=== PATIENT | male | born 2000 | race Caucasian/White ===

== ENCOUNTER 2025-01-08 13:25 | Emergency (ER) | payer OTHER, SELFPAY ==
[2025-01-08 13:42] VITALS: BP 180/92
[2025-01-08 14:08] LABS: % Basophils 0.5 % (0-2); % Immature Granulocytes 0.4 % (0-0.5); % Lymphocytes 18.4 % (20.5-51.1); % Monocytes 4.7 % (1.7-9.3); Absolute Lymphocytes 1.5 10^3/uL (1.2-3.4); Absolute Monocytes 0.4 10^3/uL (0.1-0.6); Absolute Neutrophils 6.3 10^3/uL (1.4-6.5); Hemoglobin 15.6 g/dL (13.0-18.0); Mean Corp Hgb Conc. 37.1 g/dL (33.0-37.0); Mean Corpuscular Hgb 31.9 pg (27.0-31.0); Mean Corpuscular Volume 85.9 fL (80.0-94.0); Mean Platelet Volume 10.6 fL (7.4-10.4); Nucleated Red Blood Cells % 0 % (-); Platelet Count 148 10^3/uL (130-400); Red Blood Cell Count 4.89 10^6/uL (4.70-6.10); Red Cell Dist. Width 11.9 % (11.5-14.5); White Blood Cell Count 8.3 10^3/uL (4.8-10.8)
[2025-01-08 14:31] LABS: Amphetamines Negative (Negative); Barbiturates Negative (Negative); Benzodiazepines Negative (Negative); Buprenorphine Negative (Negative); Cocaine Negative (Negative); Marijuana Positive (Negative); Methadone Negative (Negative); Methamphetamines Negative (Negative); Opiates Negative (Negative); Phencyclidine Negative (Negative); Tricyclic Antidepressants Negative (Negative)
[2025-01-08 14:32] LABS: ALT (SGPT) 512 U/L (0-50); Acetaminophen < 10 ug/ml (10-30); Albumin 5.1 g/dl (3.5-5.0); Alkaline Phosphatase 100 U/L (38-126); Blood Urea Nitrogen 9 mg/dl (9-20); Calcium 8.9 mg/dl (8.4-10.2); Carbon Dioxide 30 mmol/L (22-30); Chloride 82 mmol/L (98-107); Glucose 149 mg/dl (70-99); Potassium 3.5 mmol/L (3.5-5.1); Salicylate < 1.0 mg/dl (2.0-20.0); Sodium 132 mmol/L (135-145); Total Bilirubin 1.1 mg/dl (0.2-1.3); Total Protein 8.3 g/dl (6.3-8.2); eGFR > 60.00
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
--- NOTE | 2025-01-08 14:43 | CM ---
Addendum entered by Keyanna Tillman RN 01/08/25 15:06:
CM met with patient in room. Patient was visible intoxicated, but was agreeable to [facility] referral. CM spoke with Tj regarding new referral.
Original Note:
CM reviewed medical records. Plan for crisis to evaluate. CM will continue to follow as needed.
[2025-01-08 14:44] LABS: AST (SGOT) 770 U/L (17-59); Alcohol 476 mg/dl
[2025-01-08 15:16] VITALS: BP 147/103
--- NOTE | 2025-01-08 15:16 | EDRN ---
er dR Nichols CANCELLED THIS PTS ONE TO ONE OBSERVATION ORDER AND STATED TO THIS ORE FEEDER THAT THIS PT DOES NOT NEED FREQUENT OBSERVATION. ER DR NICHOLS WAS NOTIFIED THAT THE PT IS CURRENTLY DRY HEAVING
[2025-01-08 15:30] VITALS: BMI 20.9
[2025-01-08] MEDS: ZOFRAN 4 MG IV (15:33)
[2025-01-08] MEDS: MULTIVITAMIN 1011 ML IV (15:52)
[2025-01-08] MEDS: MULTIVITAMIN 1011 MG IV (15:52)
--- NOTE | 2025-01-08 15:57 | EDRN ---
the pt is observed getting up out of bed, walking to the sink in the hallway, filling up the urinal with water, and drinking the water out of the urinal. the pt was repeatedly told he should not be drinking any water due to current nausea and
vomiting. the pt stated 'i need to drink the water so i can vomit and get it all out.' the pt is repeatedly asking for water. ER Dr Mahan was notified of above and stated the pt is allowed to drink water.
--- NOTE | 2025-01-08 16:45 | EDRN ---
this HOUSING PROJECT MANAGER observed this pt out of bed walking to the hallway sink, filling the urinal up with water, and drinking out of it. the pt is bleeding from his IV site due to the pt removing his IV so he could get out of bed to get water. this HOUSING PROJECT MANAGER
bandaged the pts left forearm IV site and cleaned up the blood that dripped on the floor and in the hallway and on the hallway sink. ER Dr Mahan was notified of above and came to the pts bedside to speak with this pt. ER Dr Mahan told this pt he
can not have any more water to drink for now. Per ER Dr Mahan verbal order at bedside, if the pt is able to not vomit for one hour then he can be given a few ice chips for PO challenge and advance diet as tolerated. the pt is continually stating 'i
need water. I need to drink water.'
the ER two way radio technician Keisha Washington was called notified of above. the pt was placed on 1:1 observation for patient safety due to the pt continually getting out of bed and removing his IV access.
Per ER Dr Mahan verbal order to this HOUSING PROJECT MANAGER, the pt does NOT need to be continuous cardiac monitoring.
[2025-01-08 17:00] VITALS: BP 150/94
[2025-01-08 18:16] VITALS: BP 143/92
== END 2025-01-08 20:37 ==
LOC: EMR 13:25
PROVIDERS: EMERGENCY PHYSICIAN Emergency Medicine
DX: F10.20 Alcohol dependence, uncomplicated (principal)
CPT/HCPCS: 99283; 96374; 80053; 80143; 80179; 80306; 82077; 85025; 93005